=== PATIENT | male | born 1970 | race African-American/Black ===

== ENCOUNTER 2017-09-24 06:29 | Emergency (ER) | payer SELFPAY ==
--- NOTE | 2017-09-24 06:58 | ED Physician Documentation ---
General Adult - HISTORIAN Historian: patient - HPI Stated Complaint: blood draw Chief Complaint: General Adult Additional Information: Here for blood draw, accompanied by police officers. Agrees to blood draw. - ROS CONST: no problems - PAST HX Past History: asthma Other History: none - SOCIAL HX Smoking History: non-smoker - FAMILY HX Family History: No - REVIEWED ASSESSMENTS Nursing Assessment Reviewed: Yes Vitals Reviewed: Yes General Adult Physical Exam - PHYSICAL EXAM GENERAL APPEARANCE: no distress EENT: eye inspection normal NECK: normal inspection, supple RESPIRATORY: no resp distress BACK: normal inspection SKIN: normal color EXTREMITIES: no evidence of injury NEURO: cognition normal Discharge Clincal Impression: Health examination of prisoner Referrals: Primary Doctor,No [Primary Care Provider] - 2 Days Condition: Good Disposition: 01 HOME, SELF-CARE Decision to Admit: NO Decision Time: 06:59
[2017-09-24 07:10] VITALS: BP 146/91
== END 2017-09-24 08:02 | disposition home or self-care (01) ==
LOC: ED 06:29
DX: Z02.89 Encounter for other administrative examinations (principal)
CPT/HCPCS: 99282